=== PATIENT | female | born 1980 | race Two or more races ===

== ENCOUNTER 2021-05-12 16:29 | Emergency (ER) | payer MEDICAID ==
[~2021-05-12] VITALS: Ht 160 cm; Wt 76.2 kg
[2021-05-12 21:38] VITALS: BP 139/65
== END 2021-05-13 04:15 | disposition home or self-care (01) ==
LOC: ER 16:29
DX: S82.141A Displaced bicondylar fracture of right tibia, initial encounter for closed fracture (principal); X58.XXXA Exposure to other specified factors, initial encounter; Y93.89 Activity, other specified; Y92.89 Other specified places as the place of occurrence of the external cause; Y99.8 Other external cause status
CPT/HCPCS: 73562

== ENCOUNTER 2022-06-15 09:42 | Emergency (ER) | payer MEDICAID ==
[~2022-06-15] VITALS: Ht 162.6 cm; Wt 65.0 kg
[2022-06-15 10:33] VITALS: BP 137/72
[2022-06-15] MEDS ORDERED: METH4PAK PO (10:45)
[2022-06-15] MEDS ORDERED: AZITTAB PO (10:45)
== END 2022-06-15 10:51 | disposition home or self-care (01) ==
LOC: ER 09:42
DX: U07.1 COVID-19 (principal)